=== PATIENT | female | born 2005 | race Caucasian/White ===

== ENCOUNTER 2024-05-28 22:13 | Emergency (ER) | payer SELFPAY ==
[2024-05-28] MEDS ORDERED: Ketorolac Tromethamine 30 MG (1 mL) VIAL ONE (22:23)
[2024-05-28] MEDS ORDERED: Ondansetron PF 4 MG/2 ML Vial ONE (22:27)
[2024-05-28 22:51] LABS: #Basophils 0.04 10x3/uL (0.0-0.2); #Eosinophils 0.14 10x3/uL (0.0-0.5); #Monocytes 0.72 10x3/uL (0.0-1.1); #Neutrophils 10.96 10x3/uL (1.5-8.4); %Basophils 0.3 % (0.0-2.0); %Lymphocytes 15.6 % (18.0-47.0); %Monocytes 5.1 % (0.0-10.0); %Neutrophils 77.6 % (40.0-75.0); Hematocrit 43.1 % (34.9-44.5); Hemoglobin 14.1 g/dL (12.0-15.5); Mean Corpuscular HGB CONC 32.7 g/dL (32.0-36.0); Mean Corpuscular Hemoglobin 31.1 pg (27.0-33.0); Mean Corpuscular Volume 94.9 fL (81.6-98.3); Mean Platelet Volume 9.5 fL (7.4-10.4); Platelet Count 237 10x3/uL (150-450); RBC Distribution Width 13.7 % (11.5-14.5); Red Blood Cell (RBC) Count 4.54 10x6/uL (3.90-5.03); White Blood Cell (WBC) Count 14.11 10x3/uL (3.5-10.5)
[2024-05-28 22:57] LABS: BHCG - Serum Negative (NEGATIVE); Pregs Control Background? CLEAR/WHITE (CLR/WHITE); Pregs Control Bar Appear? YES (CONTROL BAR)
[2024-05-28 23:01] LABS: Anion Gap 13 mmol/L (10-20); BUN (Urea Nitrogen) 13 mg/dL (7.0-18.7); Calc. Creatinine Clearance 0 mL/min (70-130); Calcium 9.4 mg/dL (7.8-10.44); Carbon Dioxide 23 mmol/L (22-29); Chloride 106 mmol/L (98-107); Estimated GFR 108; Glucose 101 mg/dL (70-105); Potassium 4.1 mmol/L (3.5-5.1); Sodium 138 mmol/L (136-145)
[2024-05-28 23:20] LABS: Bilirubin Neg (Negative); Blood, Urine Negative (Negative); Clarity Clear (Clear); Glucose, Urine (Dipstick) Normal (Negative); Ketone, Urine Negative (Negative); Leukocyte Negative (Negative); Nitrite Negative (Negative); Protein, Urine (Dipstick) Negative (Neg-Trace); Urobilinogen Normal mg/dL (Less than 2)
[2024-05-28 23:30] LABS: Bacteria/HPF Rare-Few HPF (None Seen); CAUTI Indications for Culture Pelvic or flank pain; RBC/HPF 0-3 HPF (0-3)
[2024-05-28 23:31] LABS: Urine Culture Reflex No No
== END 2024-05-29 00:59 | disposition home or self-care (01) ==
LOC: CSHERS 22:13
DX: R10.12 Left upper quadrant pain (principal); R11.2 Nausea with vomiting, unspecified
CPT/HCPCS: 74177; 80048; 81001; 84703; 85025; 96374; 96375; J1885; J2405